=== PATIENT | male | born 1960 | race Two or more races ===

== ENCOUNTER 2019-01-07 16:14 | Inpatient (IN) | payer BC, MEDICAID ==
[~2019-01-07] VITALS: Ht 168.9 cm; Wt 83.0 kg
[2019-01-07] MEDS ORDERED: ONDANSETRON HCL 4MG/2ML INJ IV STA (17:21)
[2019-01-07] MEDS ORDERED: SODIUM CHLORIDE 0.9% 1,000 ML IV ONE (17:21)
[2019-01-07 17:51] LABS: BASOPHILS % 0.2 % (0.0-2.0); EOSINOPHILS % 0.1 % (0.0-5.0); HEMOGLOBIN. 13.5 g/dL (14.0-18.0); LYMPHOCYTES % 12.4 % (20.0-50.0); MEAN CORPUSCULAR HEMOGLOBIN 29.5 pg (28.0-32.0); MEAN CORPUSCULAR VOLUME 89.9 fL (80.0-94.0); MONOCYTES % 4.1 % (2.0-8.0); NEUTROPHILS % 83.2 % (40.0-76.0); PLATELET 224 x1000/uL (130-400); RED BLOOD CELL COUNT 4.56 mill/uL (4.7-6.1); RED CELL DISTRIBUTION WIDTH 15.1 % (11.6-14.6)
[2019-01-07 17:56] LABS: CHLORIDE 111 mEq/L (98-107)
[2019-01-07 19:17] LABS: ETHANOL BLOOD < 10 mg/dL
[2019-01-07 19:22] LABS: CREATINE KINASE 265 IU/L (39-308)
[2019-01-07 19:23] LABS: CREATINE KINASE MB FRACTION 2.1 ng/mL (0.5-3.6)
[2019-01-07] MEDS ORDERED: ASPIRIN 81MG TABLET PO ONE (19:30)
[2019-01-07 20:24] LABS: CLARITY URINE CLEAR (CLEAR); COLOR URINE YELLOW (YELLOW); KETONES URINE 1+ (NEGATIVE); LEUKOCYTE ESTERASE URINE NEGATIVE (NEGATIVE); NITRITE URINE NEGATIVE (NEGATIVE); OCCULT BLOOD URINE NEGATIVE (NEGATIVE); PROTEIN URINE TRACE (NEGATIVE); SPECIFIC GRAVITY URINE 1.029 (1.005-1.030)
[2019-01-07 20:57] LABS: *BARBITURATES SCREEN URINE NEGATIVE (NEGATIVE); *COCAINE SCREEN URINE NEGATIVE (NEGATIVE); METHADONE URINE SCREEN NEGATIVE (NEGATIVE); OPIATES URINE SCREEN NEGATIVE (NEGATIVE)
[2019-01-07 20:58] LABS: *AMPHETAMINES SCREEN URINE NEGATIVE (NEGATIVE); *BENZODIAZEPINES SCREEN URINE NEGATIVE (NEGATIVE); CANNABINOID URINE SCREEN NEGATIVE (NEGATIVE); PHENCYCLIDINE URINE SCREEN NEGATIVE (NEGATIVE)
[2019-01-07 23:00] VITALS: BP 143/85
[2019-01-07] MEDS ORDERED: MAGNESIUM/ALUMINUM HYDROXIDE/SIMETHICONE 30ML UDC PO PRN (23:15)
[2019-01-07] MEDS ORDERED: ONDANSETRON HCL 4MG/2ML INJ IV PRN (23:15)
[2019-01-07] MEDS ORDERED: ACETAMINOPHEN 325MG TABLET PO PRN (23:15)
[2019-01-07] MEDS ORDERED: DIPHENHYDRAMINE 50MG/ML VIAL IV PRN (23:15)
[2019-01-08] VITALS: BP_SYST 128; BP_SYST 137; BP_DIAS 74; BP_DIAS 78
[2019-01-08] MEDS ORDERED: RED600CA5 PO (00:54)
[2019-01-08] MEDS: DEXT 5%/0.2% NACL KCL 20MEQ/L 1,000 ML IV SCH ×2 (01:23→09:00)
[2019-01-08 04:00] VITALS: BP 109/61
[2019-01-08 06:54] LABS: BASOPHILS % 0.4 % (0.0-2.0); EOSINOPHILS % 1.1 % (0.0-5.0); HEMATOCRIT. 37.2 % (42.0-52.0); HEMOGLOBIN. 12.5 g/dL (14.0-18.0); LYMPHOCYTES % 37.8 % (20.0-50.0); MEAN CORPUSCULAR VOLUME 88.9 fL (80.0-94.0); MEAN PLATELET VOLUME 9.6 fl (7.4-10.4); MONOCYTES % 6.9 % (2.0-8.0); NEUTROPHILS % 53.8 % (40.0-76.0); PLATELET 216 x1000/uL (130-400); RED BLOOD CELL COUNT 4.18 mill/uL (4.7-6.1); RED CELL DISTRIBUTION WIDTH 14.9 % (11.6-14.6)
[2019-01-08 06:59] LABS: CHLORIDE 109 mEq/L (98-107)
[2019-01-08 07:13] LABS: PHOSPHORUS 2.7 mg/dL (2.5-4.9)
[2019-01-08 08:00] VITALS: BP 104/64
[2019-01-08] MEDS ORDERED: POTASSIUM CHLORIDE INJ 20 MEQ in DEXT 5%/0.2% NACL 1,000 ML IV SCH (09:30)
[2019-01-08] MEDS ORDERED: POTASSIUM CHLORIDE 20MEQ TABLET SR PO NR ×2 (09:45→13:15)
[2019-01-08 12:00] VITALS: BP 124/48
== END 2019-01-08 17:10 | disposition home or self-care (01) | DRG 48 ==
LOC: ER 16:14 → 5WST 19:49 → ENRESERV 21:59
PROVIDERS: ADMIT Internal Medicine; ATTEND Internal Medicine
DX: G90.8 Other disorders of autonomic nervous system (principal); E78.00 Pure hypercholesterolemia, unspecified; I10 Essential (primary) hypertension; E87.6 Hypokalemia; Z82.49 Family history of ischemic heart disease and other diseases of the circulatory system
CPT/HCPCS: 36415; 71045; 80048; 80305; 80320; 81003; 82550; 82553; 83735; 83880; 84100; 84443; 84484; 93005; 96360; 96361; 99285; J3480; J7030; G0480

== ENCOUNTER 2020-08-28 10:22 | Emergency (ER) | payer MEDICAID ==
[~2020-08-28] VITALS: Ht 170.2 cm; Wt 88.0 kg
[~2020-08-28 10:22] MED LIST: RED600CA5 PO
[2020-08-28] MEDS ORDERED: METHYLPREDNISOLONE SOD SUCC 125 MG/2 ML VIAL IV SCH (10:45)
[2020-08-28] MEDS ORDERED: FAMOTIDINE 20MG/2ML VIAL IV ONE (10:45)
[2020-08-28] MEDS ORDERED: DIPHENHYDRAMINE 50MG/ML VIAL IV ONE (10:45)
[2020-08-28] MEDS ORDERED: P50 MT (11:37)
[2020-08-28] MEDS ORDERED: DIPH25CA83 MT (11:37)
[2020-08-28 12:27] VITALS: BP 148/89
== END 2020-08-28 12:30 | disposition home or self-care (01) ==
LOC: ER 10:22
DX: T78.40XA Allergy, unspecified, initial encounter (principal); E78.00 Pure hypercholesterolemia, unspecified; I10 Essential (primary) hypertension; X58.XXXA Exposure to other specified factors, initial encounter
CPT/HCPCS: 96374; 96375; 99284; J1200; J2930; J3490; Z7610

== ENCOUNTER 2023-11-10 10:30 | Emergency (ER) | payer MEDICAID ==
[~2023-11-10] VITALS: Ht 170.2 cm; Wt 86.2 kg
[~2023-11-10 10:30] MED LIST changes: +DIPH25CA83 MT; +P50 MT
[2023-11-10 10:37] VITALS: O2SAT 100
[2023-11-10 10:51] LABS: BASOPHILS % 0.9 % (0.0-2.0); EOSINOPHILS % 0.7 % (0.0-5.0); HEMATOCRIT. 38.3 % (42.0-52.0); HEMOGLOBIN. 12.5 g/dL (14.0-18.0); LYMPHOCYTES % 22.4 % (20.0-50.0); MEAN CORPUSCULAR HEMOGLOBIN 29.1 pg (28.0-32.0); MEAN CORPUSCULAR HGB CONC 32.6 g/dL (31.0-37.0); MEAN CORPUSCULAR VOLUME 89.1 fL (80.0-94.0); MEAN PLATELET VOLUME 7.7 fl (7.4-10.4); MONOCYTES % 5.5 % (2.0-8.0); NEUTROPHILS % 70.5 % (40.0-76.0); PLATELET 393 x1000/uL (130-400); RED CELL DISTRIBUTION WIDTH 13.7 % (11.6-14.6); WHITE BLOOD COUNT 8.3 x1000/uL (4.5-11.0)
[2023-11-10 10:59] LABS: CARBON DIOXIDE 26 mEq/L (21-32); CHLORIDE 108 mEq/L (98-107); POTASSIUM 3.6 mEq/L (3.5-5.1); SODIUM 141 mEq/L (136-145)
[2023-11-10] MEDS: MAGNESIUM/ALUMINUM HYDROXIDE/SIMETHICONE 30ML UDC PO ONE (11:00)
[2023-11-10] MEDS: FAMOTIDINE 20MG TABLET PO ONE (11:00)
[2023-11-10 11:05] LABS: GLUCOSE 91 mg/dL (70-105); UREA NITROGEN BLOOD 9 mg/dL (9-23)
[2023-11-10 11:06] LABS: ALANINE AMINOTRANSFERASE 10 IU/L (10-49)
[2023-11-10 11:07] LABS: ASPARTATE AMINOTRANSFERASE 13 IU/L (<34); BILIRUBIN DIRECT 0.2 mg/dL (<=3.0); BILIRUBIN TOTAL 0.5 mg/dL (0.1-1.0); PROTEIN TOTAL 6.4 g/dL (6.0-8.3)
[2023-11-10 11:17] LABS: TROPONIN I HIGH SENSITIVITY < 4 ng/L (3.0-53)
[2023-11-10 12:00] VITALS: BP 151/77; PULSE 85; RESP 17; TEMP 98
[2023-11-10] MEDS ORDERED: MAG-55 MT (12:02)
[2023-11-10] MEDS ORDERED: FAMO-135 MT (12:02)
== END 2023-11-10 12:11 | disposition home or self-care (01) ==
LOC: ER 10:30
DX: K29.60 Other gastritis without bleeding (principal); E78.00 Pure hypercholesterolemia, unspecified; I10 Essential (primary) hypertension
CPT/HCPCS: 36415; 71045; 80048; 80076; 83605; 84484; 85025; 99284